=== PATIENT | male | born 1960 | race Caucasian/White ===

== ENCOUNTER 2018-11-26 14:58 | Emergency (ER) | payer MEDICAID ==
[~2018-11-26] VITALS: Ht 190.5 cm; Wt 122.5 kg
[~2018-11-26 14:58] MED LIST: Bactrim Ds Tab1 EACH PO
[2018-11-26 15:51] LABS: BASOPHILS ABSOLUTE AUTO 0.02 K/mm3 (0.00-0.23); BASOPHILS PERCENT AUTO 0 % (0-2); EOSINOPHILS ABSOLUTE AUTO 0.01 K/mm3 (0.00-0.68); EOSINOPHILS PERCENT AUTO 0 % (0-6); Hematocrit 46.2 % (37.0-53.0); Hemoglobin 15.8 g/dL (13.5-17.5); IMMATURE GRAN ABSOLUTE AUTO 0.05 K/mm3 (0.00-0.10); IMMATURE GRAN PERCENT AUTO 0 % (0-1); LYMPHOCYTES ABSOLUTE AUTO 1.12 K/mm3 (0.84-5.20); LYMPHOCYTES PERCENT AUTO 8 % (21-46); MONOCYTES ABSOLUTE AUTO 1.38 K/mm3 (0.16-1.47); MONOCYTES PERCENT AUTO 10 % (4-13); Mean Corpuscular HGB 31.2 pg (26.0-34.0); Mean Corpuscular HGB Conc 34.2 g/dL (31.5-36.5); Mean Corpuscular Volume 91 fL (80-100); Mean Platelet Volume 9.5 fL (9.1-12.4); NEUTROPHILS ABSOLUTE AUTO 10.69 K/mm3 (1.96-9.15); NEUTROPHILS PERCENT AUTO 81 % (41-73); Platelet Count 194 K/mm3 (150-400); RDW Coefficient Variation 12.7 % (11.7-14.2); RDW Standard Deviation 41.8 fL (35.1-46.3); Red Blood Cell Count 5.07 M/mm3 (4.30-5.90); White Blood Cell Count 13.27 K/mm3 (4.00-11.30)
[2018-11-26 16:13] LABS: Albumin, Blood 3.7 g/dL (3.4-5.0); Albumin/Globulin Ratio 0.9 (0.8-1.8); Bilirubin, Total 1.2 mg/dL (0.1-1.0); Bun/Creatinine Ratio 11.7 (12.0-20.0); Calcium, Blood 8.9 mg/dL (8.5-10.1); Creatinine, Blood 1.71 mg/dL (0.60-1.20); Globulin, Blood 4.2 g/dL (2.2-4.0); Potassium, Blood 4.1 mmol/L (3.5-5.5); Total Protein, Blood 7.9 g/dL (6.4-8.2)
[2018-11-26 17:18] LABS: Source, Urine Clean Catch
[2018-11-26 17:26] LABS: Bilirubin, Urine Neg (Neg); Blood, Urine 3+ (Neg); Glucose Qualitative, Urine Neg (Neg); Ketones, Urine 3+ (Neg); Leukocyte Esterase, Urine Neg (Neg); Nitrite, Urine Neg (Neg); Protein, Urine 2+ (Neg); Specific Gravity, Urine 1.015 (1.003-1.022); Urobilinogen, Urine NORM (Normal)
[2018-11-26 17:33] LABS: Appearance, Urine Hazy (Clear); Color, Urine Amber (P-Yellow)
[2018-11-26 17:34] LABS: Bacteria Rare /hpf; Red Blood Cells, Urine 0-2 /hpf (0-2); Squamous Epithelial Cells Rare /hpf (Few); White Blood Cells, Urine 0-2 /hpf (0-5)
[2018-11-26] MEDS ORDERED: KETO10 PO (17:43)
[2018-11-26] MEDS ORDERED: Flomax0.4 MG PO (17:43)
[2018-11-26] MEDS ORDERED: Norco 5-325 Ta1 EACH PO (17:43)
== END 2018-11-26 18:01 | disposition home or self-care (01) ==
LOC: ER 14:58
PROVIDERS: Physician Assistant
DX: N13.2 Hydronephrosis with renal and ureteral calculous obstruction (principal); F17.220 Nicotine dependence, chewing tobacco, uncomplicated
CPT/HCPCS: 36415; 74176; 80053; 81001; 83690; 85025; 96361; 96365; 96375; 99284-25; J0696; J1885; J2405; J3010; J7030

== ENCOUNTER 2019-07-14 08:03 | Emergency (ER) | payer OTHER ==
[~2019-07-14] VITALS: Ht 193 cm; Wt 127.0 kg
[~2019-07-14 08:03] MED LIST changes: +Flomax0.4 MG PO; +KETO10 PO; +Norco 5-325 Ta1 EACH PO
[2019-07-14 08:54] LABS: Source, Urine Catheter
[2019-07-14 08:58] LABS: BASOPHILS ABSOLUTE AUTO 0.03 K/mm3 (0.00-0.23); BASOPHILS PERCENT AUTO 0 % (0-2); Bilirubin, Urine Neg (Neg); Blood, Urine 5+ (Neg); EOSINOPHILS ABSOLUTE AUTO 0.03 K/mm3 (0.00-0.68); EOSINOPHILS PERCENT AUTO 0 % (0-6); Glucose Qualitative, Urine Neg (Neg); Hematocrit 41.2 % (37.0-53.0); IMMATURE GRAN ABSOLUTE AUTO 0.04 K/mm3 (0.00-0.10); IMMATURE GRAN PERCENT AUTO 1 % (0-1); Ketones, Urine Neg (Neg); LYMPHOCYTES ABSOLUTE AUTO 1.24 K/mm3 (0.84-5.20); LYMPHOCYTES PERCENT AUTO 15 % (21-46); Leukocyte Esterase, Urine 1+ (Neg); MONOCYTES ABSOLUTE AUTO 0.54 K/mm3 (0.16-1.47); MONOCYTES PERCENT AUTO 7 % (4-13); Mean Corpuscular HGB 30.6 pg (26.0-34.0); Mean Corpuscular Volume 90 fL (80-100); Mean Platelet Volume 9.3 fL (9.1-12.4); NEUTROPHILS ABSOLUTE AUTO 6.38 K/mm3 (1.96-9.15); NEUTROPHILS PERCENT AUTO 77 % (41-73); Nitrite, Urine Neg (Neg); Platelet Count 188 K/mm3 (150-400); Protein, Urine 2+ (Neg); RDW Coefficient Variation 12.6 % (11.7-14.2); RDW Standard Deviation 41.1 fL (35.1-46.3); Red Blood Cell Count 4.58 M/mm3 (4.30-5.90); Urobilinogen, Urine NORM (Normal); White Blood Cell Count 8.26 K/mm3 (4.00-11.30)
[2019-07-14 09:08] LABS: Appearance, Urine Hazy (Clear); Color, Urine Yellow (P-Yellow)
[2019-07-14 09:09] LABS: Red Blood Cells, Urine 50-100 /hpf (0-2)
[2019-07-14 09:10] LABS: Amorphous Light (0-Heavy); Bacteria Few /hpf; Squamous Epithelial Cells Rare /hpf (Few)
[2019-07-14 09:17] LABS: Albumin, Blood 3.8 g/dL (3.4-5.0); Bilirubin, Total 0.4 mg/dL (0.1-1.0); Bun/Creatinine Ratio 15.6 (12.0-20.0); Creatinine, Blood 1.54 mg/dL (0.60-1.20); Potassium, Blood 4.1 mmol/L (3.5-5.5); Total Protein, Blood 7.8 g/dL (6.4-8.2)
[2019-07-14] MEDS ORDERED: SULTRIDS PO (09:44)
== END 2019-07-14 10:06 | disposition home or self-care (01) ==
LOC: ER 08:03
PROVIDERS: Emergency Medicine
DX: N39.0 Urinary tract infection, site not specified (principal); R33.9 Retention of urine, unspecified; F17.220 Nicotine dependence, chewing tobacco, uncomplicated
CPT/HCPCS: 36415; 51702; 51798; 80053; 81001; 85025; 87086; 99283-25; A9270-GY

== ENCOUNTER 2019-07-16 13:26 | Emergency (ER) | payer OTHER ==
[~2019-07-16] VITALS: Ht 193 cm; Wt 120.2 kg
[~2019-07-16 13:26] MED LIST changes: +SULTRIDS PO
[2019-07-16 14:16] LABS: Source, Urine Clean Catch
[2019-07-16 14:31] LABS: BASOPHILS ABSOLUTE AUTO 0.03 K/mm3 (0.00-0.23); BASOPHILS PERCENT AUTO 0 % (0-2); EOSINOPHILS ABSOLUTE AUTO 0.01 K/mm3 (0.00-0.68); EOSINOPHILS PERCENT AUTO 0 % (0-6); Hemoglobin 14.1 g/dL (13.5-17.5); IMMATURE GRAN ABSOLUTE AUTO 0.04 K/mm3 (0.00-0.10); IMMATURE GRAN PERCENT AUTO 1 % (0-1); LYMPHOCYTES ABSOLUTE AUTO 0.87 K/mm3 (0.84-5.20); LYMPHOCYTES PERCENT AUTO 11 % (21-46); MONOCYTES ABSOLUTE AUTO 0.82 K/mm3 (0.16-1.47); MONOCYTES PERCENT AUTO 10 % (4-13); Mean Corpuscular HGB 30.4 pg (26.0-34.0); Mean Corpuscular HGB Conc 33.6 g/dL (31.5-36.5); Mean Corpuscular Volume 91 fL (80-100); Mean Platelet Volume 9.3 fL (9.1-12.4); NEUTROPHILS ABSOLUTE AUTO 6.49 K/mm3 (1.96-9.15); NEUTROPHILS PERCENT AUTO 79 % (41-73); Platelet Count 165 K/mm3 (150-400); RDW Coefficient Variation 12.6 % (11.7-14.2); RDW Standard Deviation 41.3 fL (35.1-46.3); Red Blood Cell Count 4.64 M/mm3 (4.30-5.90); White Blood Cell Count 8.26 K/mm3 (4.00-11.30)
[2019-07-16 14:40] LABS: Bilirubin, Urine Neg (Neg); Blood, Urine 3+ (Neg); Glucose Qualitative, Urine Neg (Neg); Ketones, Urine Neg (Neg); Leukocyte Esterase, Urine Neg (Neg); Nitrite, Urine Neg (Neg); Protein, Urine 1+ (Neg); Specific Gravity, Urine 1.015 (1.003-1.022); Urobilinogen, Urine NORM (Normal)
[2019-07-16 14:43] LABS: Albumin, Blood 3.6 g/dL (3.4-5.0); Albumin/Globulin Ratio 0.9 (0.8-1.8); Bilirubin, Total 0.8 mg/dL (0.1-1.0); Bun/Creatinine Ratio 11.1 (12.0-20.0); Calcium, Blood 8.3 mg/dL (8.5-10.1); Creatinine, Blood 1.62 mg/dL (0.60-1.20); Potassium, Blood 4.1 mmol/L (3.5-5.5); Total Protein, Blood 7.6 g/dL (6.4-8.2)
[2019-07-16 14:55] LABS: Appearance, Urine Clear (Clear); Color, Urine Yellow (P-Yellow)
[2019-07-16 14:56] LABS: Bacteria Few /hpf; Squamous Epithelial Cells Rare /hpf (Few); White Blood Cells, Urine 0-2 /hpf (0-5)
[2019-07-16] MEDS ORDERED: CEPH500 PO (16:13)
== END 2019-07-16 16:58 | disposition home or self-care (01) ==
LOC: ER 13:26
PROVIDERS: Emergency Medicine
DX: M79.10 Myalgia, unspecified site (principal); R20.8 Other disturbances of skin sensation; T36.8X5A Adverse effect of other systemic antibiotics, initial encounter; Z87.891 Personal history of nicotine dependence
CPT/HCPCS: 36415; 80053; 81001; 85025; 99283

== ENCOUNTER 2019-07-17 06:09 | Emergency (ER) | payer OTHER ==
[~2019-07-17] VITALS: Ht 193 cm; Wt 122.5 kg
[~2019-07-17 06:09] MED LIST changes: +CEPH500 PO
== END 2019-07-17 06:49 | disposition home or self-care (01) ==
LOC: ER 06:09
DX: Z46.6 Encounter for fitting and adjustment of urinary device (principal); F17.220 Nicotine dependence, chewing tobacco, uncomplicated; Z88.2 Allergy status to sulfonamides
CPT/HCPCS: 99283

== ENCOUNTER 2021-10-03 02:50 | Emergency (ER) | payer OTHER ==
[~2021-10-03] VITALS: Ht 193 cm; Wt 124.7 kg
[~2021-10-03 02:50] MED LIST changes: +Veetids 500500 MG PO
[2021-10-03 04:56] LABS: Bilirubin, Urine Neg (Neg); Blood, Urine 4+ (Neg); Glucose Qualitative, Urine Neg (Neg); Ketones, Urine Neg (Neg); Leukocyte Esterase, Urine Neg (Neg); Nitrite, Urine Neg (Neg); Protein, Urine 2+ (Neg); Source, Urine Foley catheter; Urobilinogen, Urine NORM (Normal)
[2021-10-03 05:12] LABS: Appearance, Urine Clear (Clear); Color, Urine Yellow (P-Yellow)
[2021-10-03 05:14] LABS: White Blood Cells, Urine 0-2 /hpf (0-5)
[2021-10-03 05:16] LABS: Bacteria Not Seen /hpf; Squamous Epithelial Cells Not Seen /hpf (Few)
== END 2021-10-03 06:11 | disposition home or self-care (01) ==
LOC: ER 02:50
PROVIDERS: Student in an Organized Health Care Education/Training Program
DX: R33.9 Retention of urine, unspecified (principal); Z88.2 Allergy status to sulfonamides; Z79.899 Other long term (current) drug therapy; Z87.891 Personal history of nicotine dependence
CPT/HCPCS: 81001; A9270

== ENCOUNTER 2023-05-29 16:09 | Emergency (ER) | payer OTHER ==
[~2023-05-29] VITALS: Ht 193 cm; Wt 124.7 kg
[2023-05-29 16:29] VITALS: BP 114/90
[2023-05-29] MEDS ORDERED: Ketorolac Tromethamine 10 MG Tab PO ONE (18:55)
== END 2023-05-29 19:29 | disposition home or self-care (01) ==
LOC: ER 16:09
DX: S93.401A Sprain of unspecified ligament of right ankle, initial encounter (principal); M25.561 Pain in right knee; F17.220 Nicotine dependence, chewing tobacco, uncomplicated; W10.9XXA Fall (on) (from) unspecified stairs and steps, initial encounter
CPT/HCPCS: 73562-RT; 73610; 99283-25; A9270

== ENCOUNTER → 2023-06-03 | Outpatient (CLI) | payer OTHER | END | disposition home or self-care (01) | LOC: LAB SHORT 11:58 → LAB 11:58 | DX: R60.0 Localized edema (principal) ==

== ENCOUNTER 2023-07-22 16:41 | Inpatient (IN) | payer OTHER ==
[~2023-07-22] VITALS: Ht 193 cm; Wt 126.8 kg
[2023-07-22 17:02] LABS: BASOPHILS ABSOLUTE AUTO 0.03 K/mm3 (0.00-0.23); BASOPHILS PERCENT AUTO 0 % (0-2); EOSINOPHILS PERCENT AUTO 0 % (0-6); Hematocrit 43.4 % (37.0-53.0); Hemoglobin 13.8 g/dL (13.5-17.5); IMMATURE GRAN ABSOLUTE AUTO 0.12 K/mm3 (0.00-0.10); IMMATURE GRAN PERCENT AUTO 1 % (0-1); LYMPHOCYTES ABSOLUTE AUTO 0.76 K/mm3 (0.84-5.20); LYMPHOCYTES PERCENT AUTO 5 % (21-46); MONOCYTES ABSOLUTE AUTO 0.86 K/mm3 (0.16-1.47); MONOCYTES PERCENT AUTO 5 % (4-13); Mean Corpuscular HGB 29.4 pg (26.0-34.0); Mean Corpuscular HGB Conc 31.8 g/dL (31.5-36.5); Mean Corpuscular Volume 92 fL (80-100); Mean Platelet Volume 9.5 fL (9.1-12.4); NEUTROPHILS ABSOLUTE AUTO 14.28 K/mm3 (1.96-9.15); NEUTROPHILS PERCENT AUTO 89 % (41-73); Platelet Count 202 K/mm3 (150-400); RDW Coefficient Variation 14.6 % (11.7-14.2); RDW Standard Deviation 49.4 fL (35.1-46.3); White Blood Cell Count 16.05 K/mm3 (4.00-11.30)
[2023-07-22 17:18] LABS: Albumin, Blood 3.8 g/dL (3.4-5.0); Albumin/Globulin Ratio 0.9 (0.8-1.8); Bilirubin, Total 1.3 mg/dL (0.1-1.0); Bun/Creatinine Ratio 16.1 (12.0-20.0); Calcium, Blood 8.6 mg/dL (8.5-10.1); Creatinine, Blood 1.24 mg/dL (0.60-1.20); Globulin, Blood 4.3 g/dL (2.2-4.0); Potassium, Blood 4.3 mmol/L (3.5-5.5); Total Protein, Blood 8.1 g/dL (6.4-8.2)
[2023-07-22] MEDS ORDERED: Ondansetron HCl 2 MG / ML 2ML Vial IV ONE (17:20)
[2023-07-22] MEDS ORDERED: NS 1,000 ML IV SCH (17:20)
[2023-07-22] MEDS ORDERED: Ketorolac Tromethamine 30mg Vial IV ONE (17:20)
[2023-07-22 18:15] LABS: Influenza A, PCR NEGATIVE (NEGATIVE); Influenza B, PCR NEGATIVE (NEGATIVE); Resp Syncytial Virus, PCR NEGATIVE (NEGATIVE); SARS-Cov-2 (COVID-19) PCR, MMC NEGATIVE (NEGATIVE)
[2023-07-22] MEDS ORDERED: Furosemide 10 MG/ML 4ML Vial IV ONE (19:10)
[2023-07-22] MEDS ORDERED: Acetaminophen 500 MG Tab PO ONE (19:25)
[2023-07-22] MEDS ORDERED: Methocarbamol 500 MG Tab PO ONE (19:25)
[2023-07-22] MEDS ORDERED: Ondansetron HCl 2 MG / ML 2ML Vial IV PRN (19:50)
[2023-07-22] MEDS ORDERED: Enoxaparin 40 MG/0.4 ML SYR SC SCH (20:00)
[2023-07-22] MEDS ORDERED: HydrALAZINE HCl 20 MG / ML 1ML Vial IV PRN (20:05)
[2023-07-22] MEDS ORDERED: Mag Sulfate 1 GM/D5% 100ML 100 ML IV STA (20:06)
[2023-07-22 20:48] VITALS: BP 137/82
[2023-07-22 21:01] LABS: Source, Urine Clean Catch
[2023-07-22 21:04] LABS: Bilirubin, Urine Neg (Neg); Blood, Urine 2+ (Neg); Glucose Qualitative, Urine Neg (Neg); Ketones, Urine Neg (Neg); Leukocyte Esterase, Urine Neg (Neg); Nitrite, Urine Neg (Neg); Protein, Urine 2+ (Neg); Specific Gravity, Urine 1.015 (1.003-1.022); Urobilinogen, Urine NORM (Normal)
[2023-07-22 21:09] LABS: Appearance, Urine Clear (Clear); Color, Urine Yellow (P-Yellow)
[2023-07-22 21:10] LABS: Red Blood Cells, Urine 0-2 /hpf (0-2); Squamous Epithelial Cells Rare /hpf (Few); White Blood Cells, Urine 0-2 /hpf (0-5)
[2023-07-22 21:11] LABS: Bacteria Few /hpf
[2023-07-22] MEDS ORDERED: FentaNYL Citrate 50 MCG/ML 2 ML Injection IV PRN (21:25)
[2023-07-22] MEDS ORDERED: Acetaminophen 325 MG TABLET PO PRN (21:25)
--- NOTE | 2023-07-22 22:15 | NUR ---
PT IS ALERT AND ORIENTED X 4, COOPERATIVE WITH CARE AND ABLE TO MAKE NEEDS KNOWN. PT ARRIVED TO UNIT ON RA AND DENIED SOB. PT ON 3L NC NOW BECAUSE HIS OXYGEN SATURATION WENT TO HIGH 80'S WHILE SLEEPING. PT NOW MAINTAINING 02 SATURATION ABOVE 92%. HR ST 110'S, BP STABLE, AND PT DENIES CHEST PAIN/PRESSURE. EDEMA NOTED TO BLE, RLE MORE SWOLLEN THAN LEFT. MD AWARE, PT BEING DIURESED. PT IS CONTINENT OF BLADDER AND BOWELS. IV TO R AC IS PATENT/FLUSHED/SALINE LOCKED. MD WAS AT BEDSIDE SHORTLY AFTER PT ADMITTED TO UNIT. PT COMPLAINED OF 8/10 LOWER BACK PAIN. HE SAID THAT HE HAD A KIDNEY STONE A FEW MONTHS AGO AND THE PAIN IS SIMILAR TO THAT, MD IS AWARE. PT WAS MEDICATED PER EMAR. PT TOLD MD THAT R GROIN AREA HURTS TO THE TOUCH, MD EXAMINED PT AND IS AWARE. PT HAD ROOMMATE AT BEDSIDE WHEN HE WAS ADMITTED TO UNIT. PT JUST LEFT TO GO HOME FOR THE NIGHT AND SHE SAID SHE WOULD BE BACK IN THE MORNING. PT CURRENTLY RESTING IN BED WITH LIGHTS OFF AND TV ON. CALL LIGHT WITHIN REACH.
[2023-07-23] VITALS (8 sets, daily range): BP systolic 125–150; BP diastolic 81–107
[2023-07-23 04:13] LABS: BASOPHILS ABSOLUTE AUTO 0.04 K/mm3 (0.00-0.23); BASOPHILS PERCENT AUTO 0 % (0-2); EOSINOPHILS PERCENT AUTO 0 % (0-6); Hematocrit 39.7 % (37.0-53.0); Hemoglobin 12.7 g/dL (13.5-17.5); IMMATURE GRAN ABSOLUTE AUTO 0.12 K/mm3 (0.00-0.10); IMMATURE GRAN PERCENT AUTO 1 % (0-1); LYMPHOCYTES ABSOLUTE AUTO 0.66 K/mm3 (0.84-5.20); LYMPHOCYTES PERCENT AUTO 5 % (21-46); MONOCYTES ABSOLUTE AUTO 0.67 K/mm3 (0.16-1.47); MONOCYTES PERCENT AUTO 5 % (4-13); Mean Corpuscular HGB 29.3 pg (26.0-34.0); Mean Corpuscular Volume 92 fL (80-100); Mean Platelet Volume 9.6 fL (9.1-12.4); NEUTROPHILS ABSOLUTE AUTO 12.97 K/mm3 (1.96-9.15); NEUTROPHILS PERCENT AUTO 90 % (41-73); Platelet Count 178 K/mm3 (150-400); RDW Coefficient Variation 14.8 % (11.7-14.2); RDW Standard Deviation 50.2 fL (35.1-46.3); Red Blood Cell Count 4.33 M/mm3 (4.30-5.90); White Blood Cell Count 14.46 K/mm3 (4.00-11.30)
[2023-07-23 04:32] LABS: Albumin, Blood 3.3 g/dL (3.4-5.0); Albumin/Globulin Ratio 0.8 (0.8-1.8); Bilirubin, Total 2.4 mg/dL (0.1-1.0); Bun/Creatinine Ratio 14.7 (12.0-20.0); Calcium, Blood 8.5 mg/dL (8.5-10.1); Creatinine, Blood 1.43 mg/dL (0.60-1.20); Potassium, Blood 4.6 mmol/L (3.5-5.5); Total Protein, Blood 7.3 g/dL (6.4-8.2)
--- NOTE | 2023-07-23 06:28 | NUR ---
NO ACUTE CHANGES, SEE PREVIOUS NOTE.
[2023-07-23] MEDS ORDERED: Furosemide 10 MG/ML 4ML Vial IV SCH (09:00)
[2023-07-23] MEDS ORDERED: TraMADol HCl 50 MG Tab PO PRN (11:25)
[2023-07-23] MEDS ORDERED: CefTRIAXone Sodium 1,000 MG in NS 100 ML IV SCH (12:00)
--- NOTE | 2023-07-23 16:31 | NUR ---
SHIFT SUMMARY NO ACUTE CHANGES THIS SHIFT. PT HAS REMAINED ALERT AND ORIENTED WHEN AWAKE. PT SLEEPING OFF AND ON THROUGHOUT THE SHIFT. WHEN AWAKE PT ANSWERS QUESTIONS APPROPRIATELY. PT COMPLAINS OF SOME BACK PAIN AND PAIN TO RLE WITH MOVEMENT. PT MED PER EMAR. PT REPORTS LESS SOB THROUGHOUT THE SHIFT. PT ON ROOM AIR. VITAL SIGNS STABLE. PT TAKING IN PO INTAKE WELL. PT USES URINAL TO VOID INDEPENDENTLY AND IS ABLE TO REPOSITION SELF INDEPENDENTLY. IV SALINE LOCKED. MULTIPLE VISITORS IN THROUGHOUT THE DAY. WILL CONTINUE TO MONITOR AND REPORT OFF TO ONCOMING RN.
[2023-07-23] MEDS ORDERED: Metoprolol Tartrate 25 MG Tab PO SCH (21:00)
[2023-07-24 03:29] VITALS: BP 119/80
[2023-07-24 04:00] LABS: BASOPHILS ABSOLUTE AUTO 0.04 K/mm3 (0.00-0.23); BASOPHILS PERCENT AUTO 0 % (0-2); EOSINOPHILS ABSOLUTE AUTO 0.01 K/mm3 (0.00-0.68); EOSINOPHILS PERCENT AUTO 0 % (0-6); Hematocrit 38.1 % (37.0-53.0); Hemoglobin 12.3 g/dL (13.5-17.5); IMMATURE GRAN ABSOLUTE AUTO 0.05 K/mm3 (0.00-0.10); IMMATURE GRAN PERCENT AUTO 1 % (0-1); LYMPHOCYTES ABSOLUTE AUTO 1.27 K/mm3 (0.84-5.20); LYMPHOCYTES PERCENT AUTO 12 % (21-46); MONOCYTES ABSOLUTE AUTO 0.89 K/mm3 (0.16-1.47); MONOCYTES PERCENT AUTO 8 % (4-13); Mean Corpuscular HGB 29.5 pg (26.0-34.0); Mean Corpuscular HGB Conc 32.3 g/dL (31.5-36.5); Mean Corpuscular Volume 91 fL (80-100); Mean Platelet Volume 9.6 fL (9.1-12.4); NEUTROPHILS ABSOLUTE AUTO 8.58 K/mm3 (1.96-9.15); NEUTROPHILS PERCENT AUTO 79 % (41-73); Platelet Count 175 K/mm3 (150-400); RDW Standard Deviation 50.4 fL (35.1-46.3); Red Blood Cell Count 4.17 M/mm3 (4.30-5.90); White Blood Cell Count 10.84 K/mm3 (4.00-11.30)
[2023-07-24 04:15] LABS: Bun/Creatinine Ratio 20.9 (12.0-20.0); Calcium, Blood 8.5 mg/dL (8.5-10.1); Creatinine, Blood 1.48 mg/dL (0.60-1.20); Potassium, Blood 4.5 mmol/L (3.5-5.5)
--- NOTE | 2023-07-24 04:39 | NUR ---
SHIFT SUMMARY THIS RN ASSUMED CARE AT APPROX 1915. NO ACUTE EVENTS OVERNIGHT. PATIENT LETHARGIC, SLEPT T/O NIGHT. IS EASILY AROUSABLE WITH VERBAL STIMULI. PERRLA. MOVES ALL EXTREMITIES EQUALLY. INDEPENDENT WITH ADLs. AFEBRILE. MANAGING CHRONIC BACK PAIN PER EMAR WITH PO TYLENOL AND TRAMADOL, REPOSITIONING TO RECLINER CHAIR. REDNESS, SWELLNG TO RLE - POSSIBLY CELLULITIS. IS RECEIVING IV ABX. REPORTS PAIN TO BLE TOLERABLE T/O NIGHT. TELEMETRY SHOWING SINUS 70s. WAS SINUS TACH 90s-100s AT ASSUMPTION OF CARE. BP STABLE. DENIES CHEST PAIN, PRESSURE. PLACED ON 2L VIA NC WHILE SLEEPING DOES DESAT FREQUENTLY. TOLERATES ROOM AIR WHILE AWAKE. SATs >90%. TACHYPNEA AT REST, RR 20-25. CALL LIGHT IN REACH. WILL CONTINUE TO MONITOR AND REPORT TO ONCOMING RN.
[2023-07-24 07:21] VITALS: BP 121/79
[2023-07-24 11:50] VITALS: BP 109/77
[2023-07-24] MEDS ORDERED: Metolazone 2.5 MG Tab PO SCH (13:00)
[2023-07-24 16:07] VITALS: BP 122/79
--- NOTE | 2023-07-24 17:29 | NUR ---
REPORT TO MEDICAL FLOOR RN FOR IN HOUSE TRANSFER. TRANSFERRED TO MEDICAL FLOOR VIA WHEEL CHAIR A/A/OX4 IN NO ACUTE DISTRESS.
--- NOTE | 2023-07-24 18:26 | NUR ---
TRANSFER-FROM PCU AT 1610 PT CAME TO MEDICAL FLOOR IN STABLE CONDITION AFTER RECEIVING REPORT FROM JOSÉ RICHARDSON.
--- NOTE | 2023-07-24 18:35 | NUR ---
SUMMARY- PT AAOX3. PT DOES NOT UNDERSTAND HIS SITUATION. PT IS HEALTH ILLITERATE. SBA. PT COMPLAINS OF VICTORIA PAIN 9/10 TONIGHT-TYLENOL GIVEN.
[2023-07-24 19:19] VITALS: BP 128/68
[2023-07-25 04:06] VITALS: BP 125/88
[2023-07-25 05:25] LABS: Bun/Creatinine Ratio 26.3 (12.0-20.0); Calcium, Blood 8.8 mg/dL (8.5-10.1); Creatinine, Blood 1.37 mg/dL (0.60-1.20); Potassium, Blood 3.9 mmol/L (3.5-5.5)
--- NOTE | 2023-07-25 05:58 | NUR ---
SHIFT SUMMARY PATIENT HAD CAFFIENE HEADACHE, DRANK LARGE PEPSI DURING THE NIGHT.RIGHT FOOT ELEVATED ON 2 PILLOW. SEEMS JUST SWOLLEN AND RED LAST NIGHT. ENCOURAGED TO REST WITH FOOT UP
[2023-07-25 07:18] VITALS: BP 145/96
[2023-07-25] MEDS ORDERED: NS 250 ML IV PRN (08:35)
[2023-07-25] MEDS ORDERED: AMOCLA500 PO (10:47)
[2023-07-25] MEDS ORDERED: ACET325 PO (10:47)
[2023-07-25] MEDS ORDERED: ASPI81CH PO (10:48)
[2023-07-25] MEDS ORDERED: JARDIANCE10 MG PO (10:48)
[2023-07-25] MEDS ORDERED: ATOR20 PO (10:48)
[2023-07-25] MEDS ORDERED: METO50ER PO (10:49)
[2023-07-25] MEDS ORDERED: FURO40 PO (10:49)
[2023-07-25] MEDS ORDERED: SPIR25 PO (10:49)
[2023-07-25] MEDS ORDERED: TRAM50 PO (10:50)
--- NOTE | 2023-07-25 12:01 | NUR ---
DISCHARGE NOTE: PATIENT WAS EDUCATED ON DISCHARGE INSTRUCTIONS. HE VERBALIZED UNDERSTANDING OF INSTRUCTIONS AND HAD NO FURTHER QUESTIONS AT THIS TIME. IV WAS TAKEN OUT AND WNL. HARD PERSCRIPTIONS WERE PLACED IN DISCHARGE FOLDER PER PATIENT REQUEST. PATIENT IS DRESSED AND HAS PERSONAL ITEMS IN THE ROOM GATHERED. HE IS TOLERATING PO INTAKE AND IS VOIDING. PATIENT WAS WHEELCHAIRED OUT TO [facility] CAR TO BE TAKEN HOME.
== END 2023-07-25 11:51 | disposition home or self-care (01) | DRG 291 ==
LOC: ER 16:41 → PCU 16:42 → MEDS 07-24 16:02
PROVIDERS: Internal Medicine; Nurse Practitioner; ADMIT Internal Medicine
DX: I13.0 Hypertensive heart and chronic kidney disease with heart failure and stage 1 through stage 4 chronic kidney disease, or unspecified chronic kidney disease (principal); I50.21 Acute systolic (congestive) heart failure; L03.115 Cellulitis of right lower limb; N18.30 Chronic kidney disease, stage 3 unspecified; F10.20 Alcohol dependence, uncomplicated; G47.30 Sleep apnea, unspecified; Z87.442 Personal history of urinary calculi; Z88.2 Allergy status to sulfonamides; F17.220 Nicotine dependence, chewing tobacco, uncomplicated
CPT/HCPCS: 0241U; 36415; 71046; 71260; 80048; 80053; 81001; 82248; 83605; 83735; 83880; 84484; 85025; 85379; 93005; 93010; 93306; 93971; 94760; 96361; 96365-59; 96372; 96375; 96375-59; 96376; 99285-25; A9270; G0378; J0696; J1650; J1885; J1940; J2405; J3010; J3475; J7030; Q9967

== ENCOUNTER 2023-10-10 05:49 | Day surgery (SDC) | payer OTHER ==
[~2023-10-10] VITALS: Ht 198.1 cm; Wt 120.2 kg
[2023-10-10] VITALS (12 sets, daily range): BP systolic 122–155; BP diastolic 74–95
[~2023-10-10 05:49] MED LIST changes: +ACET325 PO; +AMOCLA500 PO; +ASPI81CH PO; +ATOR20 PO; +FARXIGA10 MG PO; +FURO40 PO; +JARDIANCE10 MG PO; +METO50ER PO; +SPIR25 PO; +TRAM50 PO
[2023-10-10] MEDS ORDERED: NS 1,000 ML IV ONE (06:24)
[2023-10-10] MEDS ORDERED: Heparin Sodium 1000 Units/ML 10ML MDV ONE ×2 (06:24→10:49)
[2023-10-10] MEDS ORDERED: Verapamil HCL 2.5 MG/ML 2ML Injection ONE (06:24)
[2023-10-10] MEDS ORDERED: NS 250 ML IV ONE (06:24)
[2023-10-10] MEDS ORDERED: Nitroglycerin 2 MG/20 ML BTL ONE (06:25)
[2023-10-10] MEDS ORDERED: CLOP75 PO (06:40)
[2023-10-10] MEDS ORDERED: Clopidogrel Bisulfate 75 MG Tab ONE (07:22)
[2023-10-10] MEDS ORDERED: Aspirin 325 MG Tab ONE (07:22)
[2023-10-10] MEDS ORDERED: Midazolam HCl 1MG / ML 2ML Vial ONE ×2 (10:02→10:31)
[2023-10-10] MEDS ORDERED: FentaNYL Citrate 50 MCG/ML 2 ML Injection ONE ×2 (10:02→10:30)
[2023-10-10] MEDS ORDERED: NS 500 ML IV ONE (14:20)
[2023-10-10] MEDS ORDERED: Acetaminophen 325 MG TABLET PO PRN (14:20)
[2023-10-10] MEDS ORDERED: TraMADol HCl 50 MG Tab PO PRN (14:20)
[2023-10-10] MEDS ORDERED: Furosemide 40 MG Tab PO SCH (14:20)
[2023-10-10] MEDS ORDERED: Spironolactone 25 MG Tab PO SCH (14:25)
--- NOTE | 2023-10-10 16:56 | NUR ---
PT ARRIVED IN THE UNIT FOR [facility] POST ANGIO, PT HAD 3 STENTS. RIGHT RADIAL SITE TR BAND FULLY DEFLATED, NO HEMATOMA OR BLEEDING NOTED AROUND THE SITE. PT PLEASANT ALERT AND ORIENTED X4, INDEPENDENT IN THE ROOM. PT TO DISCHARGE IN AM PLAN FOR REPEAT ANGIO ON MONDAY OUTPT. PT HAS RIGHT ARM PAIN TYLENOL WAS GIVEN AND EFFECTIVE. PT DENIES ANY CHEST PAIN/PRESSURE. VITALS HRR SR/SB 40-60S, SBP 130'S, SATS ABOVE 95% ON RA, AFEBRILE. NO OTHER ISSUES ENCOUNTERED WILL REPORT TO ONCOMING SHIFT
[2023-10-10] MEDS ORDERED: Metoprolol Succinate 50 MG TABCR PO SCH (21:00)
[2023-10-10] MEDS ORDERED: Atorvastatin 10 MG Tab PO SCH (21:00)
[2023-10-11 04:32] VITALS: BP 118/73
--- NOTE | 2023-10-11 06:08 | NUR ---
PT STABLE THROUGHOUT SHIFT. RT RADIAL ANGIO SITE REMAINS CLOSED AND APPROXIMATED. NO S/S HEMATOMA/BLEEDING/PAIN. PT HAS HAD VERY GOOD URINE OUPUT. NO C/O CP/SOB. VITAL SIGNS REMAIN WNL. PT WAS EDUCATED ON DIETARY CHOICES HE ATTEMPTED TO HAVE JOSEFINA'S DOUBLE BURGER BROUGHT TO HIM. PT OPTED FOR MORE HEALTHY CHOICE AFTER EDUCATION.
[2023-10-11 08:50] VITALS: BP 132/80
[2023-10-11] MEDS ORDERED: Enoxaparin 40 MG/0.4 ML SYR SC SCH (09:00)
[2023-10-11] MEDS ORDERED: Clopidogrel Bisulfate 75 MG Tab PO SCH (09:00)
[2023-10-11] MEDS ORDERED: Aspirin 81 MG Chew PO SCH (09:00)
== END 2023-10-11 11:07 | disposition home or self-care (01) ==
LOC: PCU 05:49 → MHTC 05:49 → PCU 12:30 → MHTC 10-11 11:07
DX: I25.118 Atherosclerotic heart disease of native coronary artery with other forms of angina pectoris (principal); I25.5 Ischemic cardiomyopathy; I12.9 Hypertensive chronic kidney disease with stage 1 through stage 4 chronic kidney disease, or unspecified chronic kidney disease; N18.9 Chronic kidney disease, unspecified; Q23.1 Congenital insufficiency of aortic valve; E78.5 Hyperlipidemia, unspecified; Z88.2 Allergy status to sulfonamides; I25.10 Atherosclerotic heart disease of native coronary artery without angina pectoris
CPT/HCPCS: 36415; 80048; 85007; 85027; 85347; 85610; 92920; 92921; 92978; 92979; 93005; 93010; 93454; 99152; 99153; A9270; C1725; C1753; C1769; C1874; C1887; C1894; J1644; J1650; J2250; J3010; J7030; J7040; J7050; Q9967

== ENCOUNTER 2024-10-05 01:20 | Emergency (ER) | payer OTHER ==
[~2024-10-05] VITALS: Ht 193 cm; Wt 117.9 kg
[~2024-10-05 01:20] MED LIST changes: +CLOP75 PO
[2024-10-05 03:22] VITALS: BP 144/85
== END 2024-10-05 04:18 | disposition home or self-care (01) ==
LOC: ER 01:20
DX: R33.9 Retention of urine, unspecified (principal); Z79.82 Long term (current) use of aspirin; Z79.899 Other long term (current) drug therapy; Z79.02 Long term (current) use of antithrombotics/antiplatelets; Z88.2 Allergy status to sulfonamides
CPT/HCPCS: 51702; 99282-25